=== PATIENT | male | born 1960 | race Caucasian/White ===

== ENCOUNTER 2023-03-09 08:00 | Day surgery (SDC) | payer BC, OTHER ==
[2023-03-09] MEDS: Lactated Ringers 1,000 ML IV SCH (08:19)
[2023-03-09] MEDS ORDERED: fentaNYL 100 MCG/2 ML SDV ONE (10:09)
[2023-03-09] MEDS ORDERED: Propofol 200 MG/20 ML SDV ONE ×2 (10:09→10:36)
[2023-03-09 11:43] VITALS: BP 148/80; PULSE 70
== END 2023-03-09 12:26 | disposition home or self-care (01) ==
LOC: VM.SDS 08:00
PROVIDERS: ATTEND Family Medicine
DX: Z12.11 Encounter for screening for malignant neoplasm of colon (principal); D12.0 Benign neoplasm of cecum; D12.6 Benign neoplasm of colon, unspecified; R73.03 Prediabetes; J45.909 Unspecified asthma, uncomplicated; Z90.89 Acquired absence of other organs; E78.2 Mixed hyperlipidemia; Z86.010 Personal history of colon polyps; Z79.899 Other long term (current) drug therapy; Z91.048 Other nonmedicinal substance allergy status
CPT/HCPCS: 00811; 45380; J2704; J3010; J7120